=== PATIENT | male | born 1970 | race African-American/Black ===

== ENCOUNTER 2024-10-16 06:00 | Emergency (ER) | payer BC ==
[2024-10-16] MEDS ORDERED: cefTRIAXone (ROCEPHIN) 500 MG VIAL ONE (06:14)
[2024-10-16 06:23] LABS: Bilirubin Neg (Negative); Blood, Urine Negative (Negative); Clarity Clear (Clear); Glucose, Urine (Dipstick) Normal (Negative); Ketone, Urine Negative (Negative); Leukocyte Negative (Negative); Nitrite Negative (Negative); Protein, Urine (Dipstick) 15 mg/dl (Neg-Trace)
[2024-10-16 06:32] LABS: CAUTI Indications for Culture Acute Hematuria; RBC/HPF 0-3 HPF (0-3); Squamous Epithelial 0-3 HPF (0-3); WBC/HPF 0-3 HPF (0-3)
[2024-10-16 06:33] LABS: Bacteria/HPF Rare-Few HPF (None Seen)
[2024-10-16 06:34] LABS: Urine Culture Reflex No No
[2024-10-16] MEDS ORDERED: Doxycycline 100 MG CAP PO SCH (07:00)
[2024-10-16 18:02] LABS: Chlam.trachomatis by PCR,Urine Not Detected (NotDetected); GC N.gonorrhoeae PCR,UrineVOID Not Detected (NotDetected)
== END 2024-10-16 07:15 | disposition home or self-care (01) ==
LOC: CSHERS 06:00
DX: Z20.2 Contact with and (suspected) exposure to infections with a predominantly sexual mode of transmission (principal)
CPT/HCPCS: 81001; 87491; 87591; 96372; 99283; J0696